=== PATIENT | female | born 2000 | race Two or more races ===

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

== ENCOUNTER 2022-06-08 15:34 | Emergency (ER) | payer OTHER ==
[2022-06-08 15:42] VITALS: BP 109/73; PULSE 75; RESP 17; TEMP 98; BMI 32.1
== END 2022-06-08 20:07 | disposition home or self-care (01) ==
LOC: JERFT 15:34
PROC: 0HBRXZZ Excision of Toe Nail, External Approach (ICD-10-PCS; principal; 2022-06-08)
DX: L60.0 Ingrowing nail (principal)
CPT/HCPCS: 99282-25